=== PATIENT | female | born 1970 | race Hispanic/Latino ===

== ENCOUNTER 2019-03-31 08:51 | Emergency (ER) | payer OTHER ==
[2019-03-31] MEDS ORDERED: KETOROLAC 30 MG/ML INJ ONE (09:15)
[2019-03-31 09:49] LABS: Absolute Lymphocytes (CBC) 2.8 K/uL (0.7-4.9); Basophils % 0.9 % (0-1.3); Hematocrit 40.7 % (36.0-45.0); Lymphocytes % 30.7 % (15.3-44.8); MPV 8.7 fL (7.6-11.3)
[2019-03-31 10:15] LABS: ALT/SGPT 34 U/L (12-78); AST/SGOT 14 U/L (15-37); Albumin 3.6 g/dL (3.4-5.0); Alkaline Phosphatase 105 U/L (45-117); BUN Blood Urea Nitrogen 9 mg/dL (7-18); Bicarbonate 29 mmol/L (21-32); Bilirubin Total 0.3 mg/dL (0.2-1.0); Glucose Level 108 mg/dL (74-106); Lipase 109 U/L (73-393); Potassium 3.8 mmol/L (3.5-5.1); Protein, Total 7.8 g/dL (6.4-8.2); Sodium Level 140 mmol/L (136-145)
[2019-03-31 10:16] LABS: Urine Blood 2+ (NEG); Urine Glucose NEGATIVE (NEG); Urine Protein NEGATIVE (NEG)
--- NOTE | 2019-03-31 10:51 | RAD REPORT ---
EXAM DESCRIPTION: CT - Abdomen Pelvis W Contrast - 03/31/2019 10:33 am CLINICAL HISTORY: Abdominal pain COMPARISON: none. TECHNIQUE: Computed axial tomography of the abdomen pelvis was obtained. 100 cc Isovue-300 was admin istered intravenously. Oral contrast was not requested which limits evaluation of bowel. All CT scans are performed using dose optimization technique as appropriate and may include automated exposure control or mA/KV adjustment according to patient size. FINDINGS: Multiple gallstones. Fatty liver Spleen, pancreas, adrenal and kidneys appear unremarkable. There is no evidence of diverticulitis. Normal appendix 5.5 centimeter complex cystic mass right adnexa. Small amount of free fluid IMPRESSION: 5.5 centimeter complex cystic mass right adnexa. This may represent a benign complex ova raymond cyst, ovarian cystic neoplasm or tubo-ovarian abscess. Further evaluation with ultrasound recomm ended. Cholelithiasis without evidence of cholecystitis
[2019-03-31] MEDS ORDERED: CEFTRIAXONE/SWI 1gm 1 GM/10 ML SYR ONE (11:01)
--- NOTE | 2019-03-31 12:42 | RAD REPORT ---
EXAM DESCRIPTION: US - Transvaginal Study Probe - 03/31/2019 12:18 pm CLINICAL HISTORY: Right adnexal mass, abnormal CT study COMPARISON: CT abdomen and pelvis March 31 TECHNIQUE: Endovaginal sonography was performed. FINDINGS: Uterus is not identified and absent by history. Left ovary is not identified and may be ob scured by bowel. No suspicious left adnexal finding on CT imaging. There may be an involuting cyst fl uid appears to be the left ovary on the CT study. Enlarged right ovarian complex is identified in the right adnexa. This consists of ovarian tissue jed ng with a large 5.5 centimeter complex cyst. No mural nodule or septation seen. There is echogenic de bris present. This is the correlate to the CT finding. Complex but otherwise benign right ovarian cys tic process is favored. Recommendation would be to undergo endovaginal sonographic re-evaluation in 2 - 3 months to allow involution of any functional cyst. IMPRESSION: Approximately 5.5 centimeter complex right adnexal cystic mass believed to be ovarian in origin. Benign etiology is favored over ovarian mass but continued follow-up is needed. Recommendation would be to undergo follow-up sonography in 2-3 months to allow involution of any functional cyst.
--- NOTE | 2019-03-31 13:00 | ER ---
Nurse's Notes [facility] Name: Ambrose Castellanos Age: 48 yrs Sex: Female : 1970 Arrival Date: 03/31/2019 Time: 08:54 Bed 13 Private MD: Diagnosis: Right ovarian cyst (5.5 cm);Acute cystitis Presentation: 03/31 09:03 Presenting complaint: Right flank pain that radiates to right groin x 2 days. Denies hb N/V/fever/urinary s/s. Transition of care: patient was not received from another setting of care. Onset of symptoms was March 30, 2019. Risk Assessment: Do you want to hurt yourself or someone else? Patient reports no desire to harm self or others. Initial Sepsis Screen: Does the patient meet any 2 criteria? No. Patient's initial sepsis screen is negative. Does the patient have a suspected source of infection? No. Patient's initial sepsis screen is negative. Care prior to arrival: None. 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 - Social history:: Smoking status: Patient/guardian denies using tobacco. - Ebola Screening: : No symptoms or risks identified at this time. Screenin:06 Abuse screen: Denies threats or abuse. Denies injuries from another. Nutritional hb screening: No deficits noted. Tuberculosis screening: No symptoms or risk factors identified. Fall Risk None identified. Assessment: 09:55 General: Appears in no apparent distress. comfortable, Behavior is calm, cooperative, ca1 appropriate for age. Pain: Complains of pain in right lower quadrant Pain radiates to right leg Pain currently is 7 out of 10 on a pain scale. Pain began 2-3 days ago. Is intermittent. Neuro: Level of Consciousness is awake, alert, obeys commands, Oriented to person, place, time, situation, Appropriate for age. Cardiovascular: Heart tones S1 S2 present Capillary refill < 3 seconds Patient's skin is warm and dry. Respiratory: Airway is patent Respiratory effort is even, unlabored, Respiratory pattern is regular, symmetrical, Breath sounds are clear bilaterally. GI: Abdomen is round non-distended, Bowel sounds present X 4 quads. Abd is soft X 4 quads Abdomen is tender to palpation in right lower quadrant. : No deficits noted. No signs and/or symptoms were reported regarding the genitourinary system. EENT: No deficits noted. No signs and/or symptoms were reported regarding the EENT system. Derm: Skin is intact, is healthy with good turgor, Skin is pink, warm \T\ dry. Musculoskeletal: Circulation, motion, and sensation intact. Capillary refill < 3 seconds, Range of motion: intact in all extremities. 11:00 Reassessment: Patient appears in no apparent distress at this time. Patient is alert, ca1 oriented x 3, equal unlabored respirations, skin warm/dry/pink. 12:12 Reassessment: Patient appears in no apparent distress at this time. Patient is alert, ca1 oriented x 3, equal unlabored respirations, skin warm/dry/pink. US result pending. 13:13 Reassessment: Patient appears in no apparent distress at this time. Patient is alert, ca1 oriented x 3, equal unlabored respirations, skin warm/dry/pink. 13:39 Reassessment: Family at bedside. Son at bedside. ca1 Vital Signs: 09:06 BP 168 / 94; Pulse 97; Resp 16; Temp 97.8; Pulse Ox 98% ; Weight 74.84 kg; Height 5 ft. hb 3 in. (160.02 cm); Pain 8/10; 09:50 BP 152 / 86; Pulse 70; Resp 16; Temp 98.0(O); Pulse Ox 97% on R/A; mh5 11:00 BP 138 / 72; Pulse 86; Resp 17 S; Pulse Ox 99% on R/A; ca1 11:56 BP 138 / 72; Pulse 72; Resp 16; Temp 99.0(O); Pulse Ox 98% on R/A; mh5 13:00 BP 135 / 75; Pulse 73; Resp 17 S; Pulse Ox 96% on R/A; ca1 09:06 Body Mass Index 29.23 (74.84 kg, 160.02 cm) hb ED Course: 08:54 Patient arrived in ED. rg4 09:00 Maury Estevez MD is Attending Physician. ps1 09:02 Ryan Menjivar, RN is Primary Nurse. sg 09:04 Triage completed. hb 09:06 Arm band placed on. hb 09:48 Patient has correct armband on for positive identification. Placed in gown. Bed in low mh5 position. Call light in reach. Side rails up X 1. Adult w/ patient. Warm blanket given. Pulse ox on. NIBP on. 09:48 Initial lab(s) drawn, by ky, sent to lab. Urine collected: clean catch specimen, 5 cloudy. Inserted saline lock: 22 gauge in left antecubital area, using aseptic technique. Blood collected. 09:49 CMP Sent. 5 09:49 CBC with Diff Sent. 5 09:49 Lipase Sent. 5 09:55 No provider procedures requiring assistance completed. ca1 10:38 CT Abd/Pelvis - IV Contrast Only In Process Unspecified. EDMS 11:40 Transvaginal Study (probe) In Process Unspecified. EDMS 12:57 Josefina Harris MD is Referral Physician. ps1 13:41 IV discontinued, intact, bleeding controlled, No redness/swelling at site. Pressure ca1 dressing applied. Administered Medications: 09:40 Drug: TORadol - Ketorolac 15 mg Route: IVP; Site: left antecubital; sg 11:00 Follow up: Response: No adverse reaction; Pain is decreased ca1 11:00 Drug: Rocephin 1 grams Route: IV; Rate: bolus; Site: left antecubital; ca1 12:12 Follow up: Response: No adverse reaction; IV Status: Completed infusion ca1 Outcome: 12:58 Discharge ordered by . ps1 13:41 Discharged to home ambulatory, with family. ca1 13:41 Condition: stable 13:41 Discharge instructions given to patient, Instructed on discharge instructions, follow up and referral plans. medication usage, Demonstrated understanding of instructions, follow-up care, medications, Prescriptions given X 3. 13:42 Patient left the ED. ca1 Signatures: Dispatcher [employer] EDMS Ryan Menjivar RN RN Belle Rodriguez RN RN Ness Melton 4 Jolene Dominguez 5 Maury Estevez MD MD ps1 Acob, Priscilla, RN RN ca1 Corrections: (The following items were deleted from the chart) 09:07 09:06 PSHx: None; hb hb 11:58 11:56 BP 138 / 72; Pulse 72bpm; Resp 16bpm; Pulse Ox 98% RA; mh5 mh5 13:41 13:39 BP 135 / 75; Pulse 73bpm; Resp 17bpm; Spontaneous; Pulse Ox 96% RA; ca1 ca1
--- NOTE | 2019-03-31 13:01 | EDPHYS ---
Physician Documentation [facility] Name: Ambrose Castellanos Age: 48 yrs Sex: Female : 1970 Arrival Date: 03/31/2019 Time: 08:54 Bed 13 Private MD: ED Physician Maury Estevez HPI: 03/31 09:07 This 48 yrs old Female presents to ER via Ambulatory with complaints of ps1 Abdominal Pain, Leg Pain. 09:07 Onset was yesterday. States that she has RLQ abdominal pain / R flank pain. Hx of ps1 hysterectomy performed in [place]. Pain is moderate to severe with palpation. Symptoms not associated with urinary complaints, n,v,d, or fever. . 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 - Social history:: Smoking status: Patient/guardian denies using tobacco. - Ebola Screening: : No symptoms or risks identified at this time. ROS: 09:07 Constitutional: Negative for fever, chills, and weight loss, Eyes: Negative for injury, ps1 pain, redness, and discharge, Cardiovascular: Negative for chest pain, palpitations, and edema, Respiratory: Negative for shortness of breath, cough, wheezing, and pleuritic chest pain, MS/Extremity: Negative for injury and deformity, Skin: Negative for injury, rash, and discoloration, Neuro: Negative for headache, weakness, numbness, tingling, and seizure. 09:07 Abdomen/GI: Positive for abdominal pain. Exam: 09:09 Constitutional: This is a well developed, well nourished patient who is awake, alert, ps1 and in no acute distress. Head/Face: Normocephalic, atraumatic. Eyes: Pupils equal round and reactive to light, extra-ocular motions intact. Lids and lashes normal. Conjunctiva and sclera are non-icteric and not injected. Chest/axilla: Normal chest wall appearance and motion. Nontender with no deformity. No lesions are appreciated. Cardiovascular: Regular rate and rhythm. No gallops, murmurs, or rubs. Normal PMI, no JVD. No pulse deficits. Respiratory: Lungs have equal breath sounds bilaterally, clear to auscultation and percussion. No rales, rhonchi or wheezes noted. No increased work of breathing, no retractions or nasal flaring. Skin: Warm, dry with normal turgor. Normal color with no rashes, no lesions, and no evidence of cellulitis. MS/ Extremity: Pulses equal, no cyanosis. Neurovascular intact. Full, normal range of motion. Neuro: Awake and alert, GCS 15, oriented to person, place, time, and situation. Cranial nerves II-XII grossly intact. Sensory grossly intact. 09:09 Abdomen/GI: Inspection: abdomen appears normal, Bowel sounds: normal, Palpation: moderate abdominal tenderness, in the right lower quadrant. Vital Signs: 09:06 BP 168 / 94; Pulse 97; Resp 16; Temp 97.8; Pulse Ox 98% ; Weight 74.84 kg; Height 5 ft. hb 3 in. (160.02 cm); Pain 8/10; 09:50 BP 152 / 86; Pulse 70; Resp 16; Temp 98.0(O); Pulse Ox 97% on R/A; mh5 11:00 BP 138 / 72; Pulse 86; Resp 17 S; Pulse Ox 99% on R/A; ca1 11:56 BP 138 / 72; Pulse 72; Resp 16; Temp 99.0(O); Pulse Ox 98% on R/A; mh5 13:00 BP 135 / 75; Pulse 73; Resp 17 S; Pulse Ox 96% on R/A; ca1 09:06 Body Mass Index 29.23 (74.84 kg, 160.02 cm) hb MDM: 09:30 Patient medically screened. ps1 13:01 Data reviewed: vital signs, nurses notes, lab test result(s), radiologic studies, and ps1 as a result, I will discharge patient. Counseling: I had a detailed discussion with the patient and/or guardian regarding: the historical points, exam findings, and any diagnostic results supporting the discharge/admit diagnosis, radiology results, the need for outpatient follow up, to return to the emergency department if symptoms worsen or persist or if there are any questions or concerns that arise at home. 03/31 09:07 Order name: CBC with Diff; Complete Time: 09:54 ps1 03/31 09:07 Order name: CMP; Complete Time: 10:34 ps1 03/31 09:07 Order name: CT Abd/Pelvis - IV Contrast Only; Complete Time: 10:56 ps1 03/31 09:07 Order name: Lipase; Complete Time: 10:34 ps1 03/31 09:48 Order name: Urine Dipstick--Ancillary (enter results); Complete Time: 10:34 bd 03/31 09:48 Order name: Urine --Ancillary (enter results); Complete Time: 10:34 bd 03/31 09:07 Order name: Urine Dipstick-Ancillary (obtain specimen); Complete Time: 09:49 ps1 03/31 09:10 Order name: IV; Complete Time: 09:49 sg 03/31 10:58 Order name: Transvaginal Study (probe); Complete Time: 12:52 ps1 Administered Medications: 09:40 Drug: TORadol - Ketorolac 15 mg Route: IVP; Site: left antecubital; sg 11:00 Follow up: Response: No adverse reaction; Pain is decreased ca1 11:00 Drug: Rocephin 1 grams Route: IV; Rate: bolus; Site: left antecubital; ca1 12:12 Follow up: Response: No adverse reaction; IV Status: Completed infusion ca1 Disposition: 03/31/19 12:58 Discharged to Home. Impression: Right ovarian cyst (5.5 cm), Acute cystitis. - Condition is Stable. - Discharge Instructions: Ovarian Cyst, Urinary Tract Infection, Adult. - Prescriptions for Keflex 500 mg Oral Capsule - take 1 capsule by ORAL route every 8 hours for 10 days; 30 capsule. Tramadol 50 mg Oral Tablet - take 1 tablet by ORAL route every 8 hours as needed; 12 tablet. Bactrim DS 800- 160 mg Oral Tablet - take 1 tablet by ORAL route every 12 hours for 10 days; 20 tablet. - Medication Reconciliation Form, Thank You Letter, Antibiotic Education, Prescription Opioid Use form. - Work release form (04/01/19 13:31). iw - Follow up: Josefina Harris MD; When: 1 week; Reason: Further diagnostic work-up, Recheck today's complaints, Continuance of care. - Problem is new. - Symptoms are unchanged. Signatures: Dispatcher [employer] EDRyan Nguyen RN RN Belle Rodriguez RN RN Maury Estevez MD MD ps1 Priscilla Fernández RN RN ca1 Marquita Machado RN iw Corrections: (The following items were deleted from the chart) 09:07 09:06 PSHx: None; hb hb 13:42 12:58 03/31/2019 12:58 Discharged to Home. Impression: Right ovarian cyst (5.5 cm); ca1 Acute cystitis. Condition is Stable. Forms are Medication Reconciliation Form, Thank You Letter, Antibiotic Education, Prescription Opioid Use. Follow up: Josefina Harris; When: 1 week; Reason: Further diagnostic work-up, Recheck today's complaints, Continuance of care. Problem is new. Symptoms are unchanged. ps1
[2019-03-31 14:08] VITALS: TEMP 99
[2019-03-31 14:09] VITALS: BP 135/75; O2SAT 96
== END 2019-03-31 13:42 | disposition home or self-care (01) ==
LOC: ER 08:51
DX: N30.00 Acute cystitis without hematuria (principal); N83.201 Unspecified ovarian cyst, right side; I10 Essential (primary) hypertension
CPT/HCPCS: 96365; 85025; 36415; 81025; 81003; 83690; 80053; 74177; 76830; 96375; 99284; Q9967; J0696

== ENCOUNTER 2019-04-09 15:45 | Day surgery (SDC) | payer OTHER ==
--- OUTSIDE RECORDS SUMMARY | 2019-04-09 15:58 | XMS REPORT | Encounter Summary ---
:1970 Author Care Team Providers Name Role Phone Justice Veloz MD Primary Care Provider [phone] Valencia Fraser Continuity Writer [phone] Reason for Visit new patient Instructions 1. Essential hypertension losartan 50 mg-hydrochlorothiazide 12.5 mg tablet CBC w/ auto diff CMP, serum or plasma lipid panel, serum hemoglobin A1c, QN, blood 2. Acquired hypothyroidism 3. Adult health examination 4. Screening for malignant neoplasm of breast learning about breast cancer screening MAMMO, screening, digital, bilateral 5. Screening for malignant neoplasm of colon Discussion Note: None recorded. Plan of Care Reminders Provider Appointments Return to on or around [facility] Office 06/30/2019 MD Magdiel Lab CBC W/ Auto 12/30/2018 [place]gg Diff [facility] (Labs) (Xray) CMP, Serum 12/30/2018 [place] or Plasma [facility] (Labs) (Xray) Lipid Panel, 12/30/2018 Gregg Serum [facility] (Labs) (Xray) Hemoglobin 12/30/2018 [place] a1C, QN, Blood [facility] (Labs) (Xray) Referral None recorded. Procedures None recorded. Surgeries None recorded. Imaging MAMMO, 12/30/2018 [place] Screening, Digital, [facility] (Scheduling) Medications Name Start Date levothyroxine 50 mcg capsule Take 1 capsule every day by oral route in the morning for 30 days. losartan 50 mg-hydrochlorothiazide 12.5 mg tablet Take 1 tablet every day by oral route for 90 days. Medications Administered None recorded. Vitals Height Weight BMI Blood Pressure 63 in 163 lbs 28.9 kg/m2 146/82 mm[Hg] Lab Results None recorded. Allergies Code Code System Name Reaction Severity Status Onset NKDA Problems Name Status Onset Date Source Hypothyroidism Active 12/30/2018 Hearing Disorder Active 12/30/2018 Hypertensive Disorder Active 12/30/2018 Procedures Date Name Performed by 01/18/2018 Hysterectomy Information not available 04/02/2014 Shoulder Surgery Procedure Information not available 12/30/2018 MAMMO, Screening, Digital, Bilateral [facility] (Scheduling) [address] [place] [address] (Work Place) Vaccine List None recorded. Social History Tobacco Smoking Status Light Tobacco Smoker (1 PPW) Past Encounters 12/30/2018 Essential Hypertension; Acquired Hypothyroidism; Adult Health Examination; Screening for Malignant Neoplasm of Breast; Screening for Malignant Neoplasm of Colon Justice Veloz MD: [address] [place] [address] [address], [place] [address], Ph. History of Present Illness Care Management - Acquired Hypothyroidism Reported By: Patient Care Management: Medication Education: understands administration, understands effect of concurrent medications, understands missed doses, understands consequences of noncompliance Interim History: Associated Symptoms: no abnormal weight gain, no tiredness, no dry skin, no cold intolerance, no constipation, no diarrhea, no goiter Notes: levothyroxine dose adjusted in Care Management - Hypertension Reported By: Patient HPI: Self Care: not under emotional stress. Severity: symptoms are improving, does not interfere with daily activities. Associated Symptoms: no dizziness, no lightheadedness, no chest pain, no shortness of breath, no palpitations, no edema, no calf muscle cramps, no blurred vision, no confusion, no headaches, no fatigue Note: Breast Cancer Screeing: Due for mammogram<div>
</div& gt;<div>Cervical Cancer screening: History of total, hysterectomy for benign disease.</div><div>
</div><div>Colon Cancer screening: Discussed colon cancer screenings at bedtime to want to start screening and risk factors.</div><div>
</div><div& gt;Vaccinations: Discussed vaccinations at length.</div><div><br& gt;</div><div>
</div> Review of Systems General Adult ROS Reported By: Patient Constitutional: Constitutional: no fever, no night sweats, no significant weight gain, no significant weight loss Eyes: Eyes: no dry eyes, no irritation ENMT: Ears: no difficulty hearing. Nose: no frequent nosebleeds. Mouth/Throat: no sore throat Cardiovascular: Cardiovascular: no chest pain, no arm pain on exertion, no shortness of breath when walking, no shortness of breath when lying down, no palpitations Respiratory: Respiratory: no cough, no wheezing, no shortness of breath, no coughing up blood Gastrointestinal: Gastrointestinal: no abdominal pain, no vomiting, normal appetite, no diarrhea, not vomiting blood Genitourinary: Genitourinary: no incontinence, no difficulty urinating, no hematuria Musculoskeletal: Musculoskeletal: no muscle aches, no muscle weakness, no arthralgias/joint pain, no back pain Integumentary: Skin: no abnormal mole, no jaundice, no rashes Neurologic: Neurologic: no loss of consciousness, no weakness, no numbness, no seizures, no dizziness; intermittent headaches Psychiatric: Psych: no depression, no sleep disturbances Endocrine: Endocrine: no fatigue Hematologic/Lymphatic: Hematologic/Lymphatic no swollen glands, no bruising Allergic/Immunologic: Allergy/Immunologic: no runny nose, no sinus pressure, no itching, no hives, no frequent sneezing Physical Exam General Adult Exam - Female Reported By: Patient Constitutional: General Appearance: healthy-appearing, well-nourished, well-developed. Level of Distress: NAD. Ambulation: ambulating normally Psychiatric: Insight: good judgement. Mental Status: active and alert, normal mood, normal affect. Orientation: to time, to place, to person. Memory: recent memory normal Head: Head: normocephalic Eyes: Pupils: PERRLA. EOM: EOMI. Sclerae: non-icteric ENMT: Oropharynx: moist mucous membranes Neck: Neck: supple, FROM. Thyroid: no enlargement, non-tender, no nodules Lungs: Respiratory effort: no dyspnea. Auscultation: breath sounds normal, good air movement Cardiovascular: Heart Auscultation: RRR, normal S1, normal S2. Neck vessels: no carotid bruits. Pulses including femoral / pedal: normal throughout Abdomen: Bowel Sounds: normal. Inspection and Palpation: soft, non-distended, no tenderness, no guarding Musculoskeletal:: Motor Strength and Tone: normal motor strength, normal tone. Joints, Bones, and Muscles: normal movement of all extremities. Extremities: no cyanosis, no edema, no varicosities Neurologic: Gait and Station: normal gait, normal station. Cranial Nerves: grossly intact. Reflexes: DTRs 2+ bilaterally throughout Skin: Inspection and palpation: no rash, no lesions
--- OUTSIDE RECORDS SUMMARY | 2019-04-09 15:58 | XMS REPORT | Encounter Summary ---
:1970 Author Care Team Providers Name Role Phone Orlando Shannon MD Primary Care Provider [phone] Valencia Fraser Emergency Room Clinician [phone] Reason for Visit new pt; Bilateral ear pain Instructions 1. Hearing loss 2. Tinnitus tympanogram 3. Allergic rhinitis Discussion Note: None recorded.Patient educational handouts: No information available. Plan of Care Patient Instructions Patient discharged with the following instructions per Dr. Fraser Suggested new hearing aids will improve hearing Follow up on needed basis If any other problem patient is to call the office Patient verbalized understanding the instructions given along with my office Reminders Provider Appointments None recorded. Lab None recorded. Referral None recorded. Procedures None recorded. Surgeries None recorded. Imaging Tympanogram In-House Results 10/02/2018 Medications Name Start Date levothyroxine 25 mcg tablet Take 1 tablet every day by oral route. losartan 50 mg-hydrochlorothiazide 12.5 mg tablet Medications Administered None recorded. Vitals Height Weight BMI Blood Pressure 5 ft 3 in 162.8 lbs 28.8 kg/m2 153/82 mm[Hg] Lab Results Date Name Specimen Result Interpretation Description Value Range Status Address 10/02/2018 Tympanogram Right Type A In-House Normal Results: For Internal Use Only Left Type A In-House Normal Results: For Internal Use Only Allergies Code Code System Name Reaction Severity Status Onset NKDA Problems No Known Problems Procedures Date Name Performed by 10/02/2018 Tympanogram In-House Results For Internal Use Only [address]73 Vaccine List None recorded. Social History Smoking Status Current Every Day Smoker Past Encounters 10/02/2018 Hearing Loss; Tinnitus; Allergic Rhinitis Valencia Fraser MD: [address] [place] [address], [address], [place] [address], Ph. History of Present Illness None recorded. Review of Systems ENT ROS Reported By: Patient ENMT: ENMT: hearing loss, congestion, runny nose Physical Exam ENT Exam Evelio Focus-No Stethoscope Reported By: Patient Constitutional: General Appearance: healthy-appearing, well-nourished, well groomed, in no acute distress. Communication: normal voice quality, hearing aids; In both ears Head/Face: Inspection: atraumatic, no masses, no lesions, no scarring. Facial strength: normal strength, normal symmetry, no synkinesis, no facial tic. Sinuses: no tenderness. Salivary glands: no tenderness of the parotid glands, no parotid masses, no tenderness of the submandibular glands, no submandibular masses. Inspection of the TMJ: symmetric opening, no popping with motion. Palpation of the TMJ: non-tender, no crepitus Eyes: Pupils: EOM intact, PERRLA, conjunctiva non-injected Ears: Right Hearing: Rinne AC>BC, Howard midline. Left Hearing: Rinne AC>BC, Ohward midline. Right External ear: normally formed, free of lesions. Left External ear: normally formed, free of lesions. Right External auditory canal: normal appearance, no obstruction, no erythema, no discharge. Left External auditory canal: normal appearance, no obstruction, no erythema, no discharge. Right Tympanic membrane: mobile with pneumatic otoscopy, pearly dawson, landmarks clear. Left Tympanic membrane: mobile with pneumatic otoscopy, pearly dawson, landmarks clear Nose: Nasal Skin: no lesions, no lacerations, no scars. Nasal Dorsum: symmetric with no visible or palpable deformities. Nasal tip: normal symmetric nasal tip, normal nasal valves. Nasal Mucosa: normal, pink and moist. Septum: not markedly deformed. Turbinates: normal size and confrontation. Polyps: none Oral Cavity/Mouth: Lips, teeth, gums: normal lips, normal gums, normal dentition. Oral Mucosa: normal, moist, no lesions. Palate: normal hard palate, normal soft palate. Tongue: normal tongue, no lesions, no edema. Tonsils: normal tonsils, no lesions. Posterior pharynx: normal. Hypopharynx: normal hypopharynx, normal tongue base, normal pyriform sinus. Larynx: normal epiglottis, normal false vocal cords, normal true vocal cords, normal glottic mobility. Nasopharynx: normal, normal adenoids, normal eustachian tubes, choanae patent Neck: Neck: symmetrical, trachea midline. Thyroid: symmetric, no enlargement, no tenderness, no nodules
--- OUTSIDE RECORDS SUMMARY | 2019-04-09 15:59 | XMS REPORT | Encounter Summary ---
:1970 Author Care Team Providers Name Role Phone Justice Veloz MD Primary Care Provider [phone] Valencia Fraser Manager Medical Writing [phone] Reason for Visit Follow Up Visit Instructions 1. Chest pain chest pain: care instructions cardiology referral 2. Gynecologic examination gynecology referral - please call patient for appt, american speaking Discussion Note: None recorded. Plan of Care Reminders Provider Appointments [facility] 04/10/2019 Earlene Henriquez Exam 8:45AM ISAAK Seo Return to on or around Justice Mckeon Office 04/24/2019 MD Magdiel Lab None recorded. Referral Cardiology 03/24/2019 Nikita Greco MD Referral Gynecology 03/24/2019 Earlene Seo Referral Procedures None recorded. Surgeries None recorded. Imaging None recorded. Medications Name Start Date levothyroxine 50 mcg tablet Take 1 tablet every day by oral route. losartan 50 mg-hydrochlorothiazide 12.5 mg tablet Take 1 tablet every day by oral route for 90 days. Medications Administered None recorded. Vitals Height Weight BMI Blood Pressure 63 in 165 lbs 6 oz 29.3 kg/m2 122/73 mm[Hg] Results Lab Results None recorded. Allergies Code Code System Name Reaction Severity Status Onset NKDA Problems Name Status Onset Date Source Hypothyroidism Active 12/30/2018 Hearing Disorder Active 12/30/2018 Hypertensive Disorder Active 12/30/2018 Procedures Date Name Performed by 01/18/2018 Hysterectomy Information not available 04/02/2014 Shoulder Surgery Procedure Information not available Vaccine List None recorded. Social History Tobacco Smoking Status Light Tobacco Smoker (1 PPW) Past Encounters 03/24/2019 Chest Pain; Gynecologic Examination Justice Veloz MD: [address] [place] [address] [address], [place] [address], Ph. History of Present Illness Angina/Chest Pain Reported By: Patient HPI: Location: chest; LEFT HEMITHORAX. Quality: sharp, stabbing. Severity: moderate. Duration: lasts minutes. Onset/Timing: abrupt onset without warning; NOT RELATED WITH EXERTION, HAPPENS AT REST. Context: at rest. Alleviating Factors: nothing gives relief. Aggravating Factors: nothing makes it worse. Associated Symptoms: fatigue, lightheadedness Note: <div>
</div><div>
</div> Review of Systems: ROS as noted in the HPI Review of Systems None recorded. Physical Exam General Adult Exam - Female [...]
[2019-04-09] MEDS ORDERED: Ringers Lactate 1,000 ML IV ONE (16:17)
[2019-04-09 16:28] LABS: Absolute Lymphocytes (CBC) 3.8 K/uL (0.7-4.9); Basophils % 0.7 % (0-1.3); Hematocrit 41.5 % (36.0-45.0); Lymphocytes % 37.8 % (15.3-44.8); MPV 8.8 fL (7.6-11.3); RBC Red Blood Cell Count 4.47 M/uL (3.86-4.86)
[2019-04-09] MEDS ORDERED: SUCCINYLCHOLINE 20 MG/ML (10 ML) IV ONE (19:00)
[2019-04-09] MEDS ORDERED: BUPIVACAINE 0.25% PF 30 ML VIAL ONE (19:16)
[2019-04-09] MEDS ORDERED: FENTANYL CITR 100 MCG/2 ML ONE ×2 (19:32→20:01)
[2019-04-09] MEDS ORDERED: MIDAZOLAM HCL 2 MG/2 ML INJ ONE (19:32)
[2019-04-09] MEDS ORDERED: ROCURONIUM 50 MG/5 ML VIAL IV ONE (19:32)
[2019-04-09] MEDS ORDERED: propofoL 200 MG/20 ML VIAL IV ONE (19:32)
[2019-04-09] MEDS: Ringers Lactate 1,000 ML IV ONE ×2 (20:28→20:51)
[2019-04-09] MEDS ORDERED: KETOROLAC 30 MG/ML INJ ONE (21:04)
[2019-04-09] MEDS ORDERED: NEOSTIGMINE 1 MG/ML -5 ML ONE (21:12)
[2019-04-09] MEDS ORDERED: GLYCOPYRROLATE 0.2 MG/ML SYR ONE (21:13)
[2019-04-09] MEDS ORDERED: MORPHINE 4 MG/ML SYR ONE (21:35)
[2019-04-09] MEDS ORDERED: ONDANSETRON 4 MG/2 ML VIAL ONE (21:35)
[2019-04-09] MEDS: MEPERIDINE HCL 25 MG/0.5 ML ONE ×2 (21:37→22:00)
[2019-04-09 22:18] VITALS: O2SAT 100
[2019-04-09 23:19] VITALS: BMI 29.0
[2019-04-09] MEDS ORDERED: HYDROCODONE/APAP 5/325 MG TAB PO PRN (23:25)
[2019-04-09] MEDS ORDERED: PROMETHAZINE INJ 25 MG/ML AMP IV PRN (23:25)
[2019-04-09] MEDS ORDERED: IBUPROFEN 600 MG TAB PO PRN (23:25)
[2019-04-09] MEDS ORDERED: MEPERIDINE HCL 50 MG/ML IV PRN (23:25)
--- NOTE | 2019-04-09 23:35 | OP ---
Date of Procedure: 04/09/2019 Surgeon: Josefina Harris MD Plastics Fabricator And Assembler: Dayami Salazar. Preoperative Diagnoses: Right lower quadrant pain, right complex adnexal mass, possible torsion. Postoperative Diagnoses: Large right hydrosalpinx, right lower quadrant pain, and tuboovarian adhesi ons to the cul-de-sac and the rectosigmoid. Procedures Performed: Diagnostic laparoscopy with pelvic washings, right salpingo-oophorectomy and l ysis of adhesions. Specimens: Right tube and ovary pelvic washings. Complications: None. Drains: No drains. Condition: Stable. Indications: The patient is a 48-year-old acutely presented with severe worsening of her right lower quadrant pain, which has been ongoing since December, but acutely worsened and presented to the ER on March 31. She had been treated for a bladder infection. The urine culture subsequently showed mixed jessica. There were no isolated organisms. She had no fever. Her white count was normal even at that time. She was referred for evaluation of her right complex 5.5 cm adnexal mass. On visualiz ation, there was mostly a complex mass with debris in the cyst. No other echogenic material seen in complex. Patient is status post hysterectomy for bleeding. She had been pain free up until December. In the office today she could not stand straight. It has been a week since the antibiotics for her b ladder infection, more accurately like 9 days. Still her pain had not improved and worsened to the p oint that she is unable to work. Still without any nausea, vomiting, did have intermittent diarrhea, but only when she ate something. No fevers, chills. Since she is status post hysterectomy, no disc harge. The differential diagnosis was possible torsion hydrosalpinx or ovarian mass, paratubal cyst, other G I pathology. On consenting the patient, consented her for laparoscopy, right salpingo-oophorectomy, pelvic washing s, if there is an adnexal mass that is malignant that is diagnosed postoperatively on pathology then she would be referred to an oncologist. After benefits and risks were discussed with the patient, kiya blanco was consented and brought to the OR. Cutter Machine Tender in the office and education and outreach coordinator here in the hospital were used. Bleeding, infection, injury to the bowel, bladder and ureters, especially since she has had other amie geries including hysterectomy, this risk was higher and this was explained to the patient clearly and she was consented appropriately. Alternatives of observation without any intervention remitting wer e all reviewed and she was brought to the OR. No antibiotics were indicated for this procedure as this was a clean case. Description Of Procedure: Patient was taken back to OR, placed in a supine fashion on the operating table. General anesthesia given and placed in a dorsal lithotomy position. Sponge on a stick was pl aced in the vagina. After abdomen, vulva, vagina, and perineum were prepped and draped in a sterile fashion. Dunlap was placed to drain the bladder. SCDs were started. Time-out was done. Arms were t ucked by the side. Infraumbilical incision was made with a scalpel using the open laparoscopy technique. Fascia was inc ised, tagged with 0 Vicryl sutures. Peritoneum entered bluntly, S retractors placed, insufflation wa s done. Upper abdominal surfaces unremarkable. Lower abdominal surfaces, large hydrosalpinx was see n about 5 to 6 cm x 4 to 5 cm. This was adhered to the right lateral wall as well as to the ovary. The ovary was adhered to the peritoneum of the cul-de-sac posteriorly and in the right pararectal spa ce. All the adhesions were in the posterior aspect, so the broad ligament anteriorly was opened up l ateral to the infundibulopelvic ligament, then the IP was isolated and the posterior peritoneum immed iately inferior to it was also opened. Then the LigaSure was taken to take down the IP to take down the vascular supply of the uterus and the tube. Once this was done, the tube was dissected from the lateral wall. The round ligament was pulled down and attached to the ovary and the tube. The ureter was much more inferior to this dissection. The peritoneum was gently dissected off the ovary and th e adhesions pulling the ovary medially. Once this was done, then the ovary was picked up. The tubal adhesions to the bowel were taken down. There were dense and filmy adhesions. All these were taken down with the help of sharp dissection and with the LigaSure as appropriate. Then the adhesions to the bowel were taken down by dissection with push-spread technique. Once the ovary was shelled out f rom the pocket it was adhered to in between the right perirectal space and the sigmoid colon and the rectum staying on the ovarian and periovarian tissue. The ovary was gently dissected off the periton eum in the right pararectal space. Once this was done, the only attachment left was to the peritoneu m in the inferior aspect of the cul-de-sac and EEA Sizer was placed in the rectum and the rectum was identified to the lateral left where the ovarian adhesions were. So, at this time the ovary was peel ed, possibly the peritoneal covering of the ovary was left behind in the posterior cul-de-sac, but mo st of the ovarian tissue was all peeled off and removed. No sharp dissection was performed here. Ho wever, there was no adhesion of this to the bowel. Once all this was removed with the help of the Cindy gaSrebecca, then a small amount of serosal layer of the right ovary was left in the cul-de-sac. The rest of the ovarian tissue was all removed. The entire tube was removed. The adhesions to the lateral a spect were all taken down with push-spread technique opening up small windows and carefully staying t owards the tube to remove all the tissue, but not get too much into the sidewall. This was all remov ed and placed in specimen bag. The bowel appeared to be unharmed. The ureter was much more inferior and so after all the specimens were placed in the EndoCatch bag, thorough irrigation and suction of the pelvic cavity was performed in all the 3 trocars that were placed 5 mm, 1 in the center and 2 in the lateral quadrant right and left were all removed under direct vision. The fascia at the umbilicu s was closed with the help of 0 Vicryl tag sutures tied together and then a simple 0 Vicryl in the winston bcutaneous tissue. All 4 incisions closed with the help of maryan. Dunlap was removed. The vaginal sponge on a stick was removed. Instrument, needle, and sponge counts were done and were correct at the end of the case. Patient tolerated the procedure well. No complications reversing the patient. She was recovered from anesthesia and taken to PACU in stable condition. Her urine output was 150 a nd clear. Instrument, needle, and sponge counts were correct. She will be recovered in the PACU and sent to the floor and discharged from there. She has a prescription for pain and she has an appointment to follow up i n the clinic in 1 week. PATITO/ARIELLA Voice ID: [id number] Report ID: [id number]
[2019-04-10 08:43] VITALS: BP 113/56; TEMP 97.2
== END 2019-04-10 11:15 | disposition home or self-care (01) ==
LOC: OR 15:45 → 2ND-WC 22:02 → OR 04-10 11:15
PROVIDERS: ATTEND Obstetrics & Gynecology
PROC: 0UT74ZZ Resection of Bilateral Fallopian Tubes, Percutaneous Endoscopic Approach (ICD-10-PCS; 2019-04-09)
PROC: 0UT24ZZ Resection of Bilateral Ovaries, Percutaneous Endoscopic Approach (ICD-10-PCS; principal; 2019-04-09 18:30)
DX: N70.11 Chronic salpingitis (principal); R19.00 Intra-abdominal and pelvic swelling, mass and lump, unspecified site; N39.0 Urinary tract infection, site not specified; R19.7 Diarrhea, unspecified; I10 Essential (primary) hypertension; E03.9 Hypothyroidism, unspecified
CPT/HCPCS: 85025; 36415; 86900; 88108; 86850; 86901; 88305 ×2; 58661; J2704; J0330; J2250; J3010 ×2; J2175; J2710; J7120 ×2; J2405

== ENCOUNTER 2019-05-19 08:50 | Day surgery (SDC) | payer OTHER ==
[2019-05-16 13:36] LABS: Absolute Lymphocytes (CBC) 2.7 K/uL (0.7-4.9); Basophils % 0.4 % (0-1.3); Hematocrit 41.1 % (36.0-45.0); MPV 8.4 fL (7.6-11.3); RBC Red Blood Cell Count 4.48 M/uL (3.86-4.86)
[2019-05-16 13:53] LABS: ALT/SGPT 46 U/L (12-78); AST/SGOT 20 U/L (15-37); Albumin 3.7 g/dL (3.4-5.0); Alkaline Phosphatase 106 U/L (45-117); Amylase Level 57 U/L (25-115); BUN Blood Urea Nitrogen 9 mg/dL (7-18); Bicarbonate 31 mmol/L (21-32); Bilirubin Direct < 0.1 mg/dL (0-0.2); Bilirubin Total 0.4 mg/dL (0.2-1.0); Glucose Level 93 mg/dL (74-106); Lipase 147 U/L (73-393); Potassium 3.3 mmol/L (3.5-5.1); Protein, Total 8.1 g/dL (6.4-8.2); Sodium Level 138 mmol/L (136-145)
--- NOTE | 2019-05-16 14:04 | RAD REPORT ---
EXAM DESCRIPTION: RAD - Chest Pa And Lat (2 Views) - 05/16/2019 1:57 pm CLINICAL HISTORY: pre op sds room 7, patient pending cholecystectomy COMPARISON: CHEST SINGLE VIEW dated 08/07/2014 TECHNIQUE: Frontal and lateral views of the chest were obtained. FINDINGS: The lungs are clear. Heart size is normal and central vasculature is within normal limit s. No pleural effusion or pneumothorax seen. No acute bony finding noted. No aortic abnormality. IMPRESSION: No acute cardiopulmonary process.
--- NOTE | 2019-05-16 15:01 | EKG ---
Test Date: 2019-05-16 Test Time: 13:37:43 Certified Real Estate Appraiser: HARPREET MEASUREMENT RESULTS: Intervals: Rate: 80 UT: 136 QRSD: 84 QT: 388 QTc: 447 [place]: P: 32 UT: 136 QRS: 1 T: 26 INTERPRETIVE STATEMENTS: Normal sinus rhythm Cannot rule out Anterior infarct, age undetermined Abnormal ECG No previous ECG available for comparison Electronically Signed On 05-16-19 15:00:34 TOUR MANAGER by Lon Bhatt
[2019-05-19] MEDS ORDERED: Ringers Lactate 1,000 ML IV ONE (09:19)
[2019-05-19] MEDS ORDERED: propofoL 200 MG/20 ML VIAL IV ONE (09:29)
[2019-05-19] MEDS ORDERED: FENTANYL CITR 100 MCG/2 ML ONE ×2 (09:29→10:35)
[2019-05-19] MEDS ORDERED: MIDAZOLAM HCL 2 MG/2 ML INJ ONE (09:29)
[2019-05-19] MEDS ORDERED: LIDOCAINE 2% MPF 5 ML VIAL ONE (09:29)
[2019-05-19] MEDS ORDERED: ROCURONIUM 50 MG/5 ML VIAL IV ONE (09:29)
[2019-05-19] MEDS: CEFOXITIN/SWI 1gm 1 GM/10 ML SYR ONE ×2 (09:35→10:10)
[2019-05-19] MEDS ORDERED: SUCCINYLCHOLINE 20 MG/ML (10 ML) IV ONE (09:49)
[2019-05-19] MEDS ORDERED: GLYCOPYRROLATE 0.2 MG/ML SYR ONE (10:25)
[2019-05-19] MEDS ORDERED: NEOSTIGMINE 1 MG/ML -5 ML ONE (10:35)
--- NOTE | 2019-05-19 10:53 | P.BOP ---
Preoperative diagnosis: acute cholecystitis, symptomatic cholelithiasis Postoperative diagnosis: same Primary procedure: Laparoscopic cholecystectomy Media Consultant Outside Sales: Humaira Worrell (Ghazala) Estimated blood loss: <10cc Specimen: gb Findings: as above Anesthesia: General Complications: None Transferred to: Recovery Room Condition: Good
[2019-05-19] MEDS ORDERED: ONDANSETRON 4 MG/2 ML VIAL ONE (11:38)
[2019-05-19] MEDS ORDERED: MEPERIDINE HCL 25 MG/0.5 ML ONE ×2 (11:39→11:50)
[2019-05-19] MEDS: MORPHINE 4 MG/ML SYR ONE ×2 (11:58→12:05)
[2019-05-19 12:28] VITALS: TEMP 96.8
[2019-05-19] MEDS ORDERED: CODEINE 30MG/APAP 300MG TAB ONE (12:55)
[2019-05-19 14:07] VITALS: BP 101/62; O2SAT 96
--- NOTE | 2019-05-20 00:50 | OP ---
Date of Procedure: 05/19/2019 Surgeon: Scar Dominguez MD Sticker On: DALE Templeton. Preoperative Diagnoses: Acute cholecystitis, symptomatic cholelithiasis. Postoperative Diagnoses: Acute cholecystitis, symptomatic cholelithiasis. Procedure: Laparoscopic cholecystectomy. Specimen: Gallbladder. Anesthesia: General plus local. Finding: As above. Indications: This is the case of a female who comes to us with symptomatic cholelithiasis and acute cholecystitis. The benefits, alternatives, and risks of laparoscopic, possible open cholecystectomy fully explained which include, but not limited to infection, bleeding, damage to adjacent structures, anesthesia complication, choledocholithiasis, bile leak, pancreatitis, OK, and even . She also understands this may not relieve any symptoms. She might need more than one surgical intervention. She understood, signed a consent. Description Of Procedure: Patient was brought to the operating room, placed in supine position. Ane sthesia was done without complication. Abdominal area was prepped and draped in a sterile fashion. Marcaine 0.5% was injected for local anesthetic, followed by sharp incision of the skin in the infrau mbilical region and the supraumbilical region. Incision was carried down to fascia, which was opened under direct vision. The peritoneum was encountered, opened under direct vision. Vicryl #1 placed inside the fascia. Kat trocar was carefully introduced. No bleeding was obtained. I placed 3 mo re trocars, 5 mm each one of them, 1 epigastric area, 2 in the right upper quadrant using same techni que, which consisted of local anesthetic, sharp incision of the skin, and introduction of the trocars under direct vision. This allowed me to put a grasper in the fundus of the gallbladder, another gra sper in the infundibulum, retracted the gallbladder in the inferolateral fashion exposing the triangl e of Calot, obtaining critical view of safety. Cystic duct and cystic artery were clearly isolated, freed circumferentially and a connection between those and the gallbladder were clearly identified. I proceeded to ligate those by using at least 3 clips proximal, 1 clip distal, ligation in middle. S rickey was done with the cystic artery. No bile leak. No bleeding. The gallbladder was removed from l iver using Bovie cauterizer and removed from abdominal cavity using EndoCatch through umbilical incis ion. After that, we inspected the area once again. No bile leak. No bleeding. At that moment, I p roceeded to remove the trocars under direct vision. Deflated the pneumoperitoneum. Closed the fasci a with #1 Vicryl. Irrigated subcutaneous tissue, closed that with 3-0 chromic and skin in a subcutic ular fashion with 3-0 chromic and Steri-Strips on top. Sponge count and instrument counts were corre ct. Patient tolerated the procedure well. Patient was sent to recovery in stable condition. NELSON/ARIELLA Voice ID: [id number] Report ID: [id number]
--- NOTE | 2019-05-20 00:50 | DS ---
Date of Discharge: 05/19/2019 Diagnosis: Acute cholecystitis. Procedure: Laparoscopic cholecystectomy. Disposition: Home. Activity: As tolerated. No heavy lifting. Followup: Follow up in my office in 1 week. Call for appointment, [phone]. Discharge Instructions: Keep the area dry for 48 hours, then may shower. Keep Steri-Strips intact. NELSON/ARIELLA Voice ID: [id number] Report ID: [id number]
== END 2019-05-19 13:55 | disposition home or self-care (01) ==
LOC: OR 08:50
PROVIDERS: ATTEND Surgery
PROC: 0FT44ZZ Resection of Gallbladder, Percutaneous Endoscopic Approach (ICD-10-PCS; principal; 2019-05-19 11:30)
DX: K80.12 Calculus of gallbladder with acute and chronic cholecystitis without obstruction (principal); I10 Essential (primary) hypertension; E07.9 Disorder of thyroid, unspecified; F17.210 Nicotine dependence, cigarettes, uncomplicated; Z80.42 Family history of malignant neoplasm of prostate; Z82.49 Family history of ischemic heart disease and other diseases of the circulatory system
CPT/HCPCS: 93005; 85025; 80048; 36415; 82150; 81025; 80076; 88304; 83690; 71046; 47562; J2704; J0330; J2250; J3010 ×2; J2175 ×2; J2710; J7120; J2405